=== PATIENT | female | born 1990 | race Caucasian/White ===

== ENCOUNTER 2021-09-30 21:27 | Emergency (ER) | payer OTHER, SELFPAY ==
--- NOTE | ~2021-09-30 | XR_ITS ---
EXAMINATION: XR chest 1V portable EXAM DATE: 09/30/2021 22:35 INDICATION: SOB TECHNIQUE: Portable AP frontal chest x-ray was obtained. There is no prior study for comparison. FINDINGS: There is density projecting over the left upper lung zone and the left 5th rib, could be [place] or intraparenchymal granuloma. The lungs are otherwise clear. There are no pleural effusio ns. The cardiomediastinal silhouette is within normal limits. There is no pneumothorax suspected. The bones and soft tissues are unremarkable. IMPRESSION: No acute cardiopulmonary findings. Left upper lung zone density; benign bone island or g ranuloma favored. CT without contrast could be confirmatory. Reviewed, dictated and finalized at location A. HOSTESS IMPRESSION: No acute cardiopulmonary findings. Left upper lung zone density; b enign bone island or granuloma favored. CT without contrast could be confirmato ry.
[2021-09-30 21:40] VITALS: BP 144/95; PULSE 115; RESP 20; TEMP 37.1; O2SAT 100
--- NOTE | 2021-09-30 21:45 | ECG_ITS ---
Measurements Intervals [place] Rate: 116 P: 52 ME: 137 QRS: 30 QRSD: 72 T: 21 QT: 292 QTc: 407 Interpretive Statements SINUS TACHYCARDIA MINIMAL Q WAVES- INFERIOR LEADS BASELINE ARTIFACT- I, II, III, AVR, AVL, AVF, V1 ABNORMAL ECG Electronically Signed On 10-01-2021 6:25:36 CONTACT CENTER DIRECTOR by Frank Lebron D.O.
[2021-09-30 22:35] VITALS: PULSE 113; RESP 19; O2SAT 100
[2021-09-30 22:43] LABS: Basophils Absolute Auto 0.06 K/mm3 (0.00-0.10); Basophils Percent Auto 0.3 % (0.0-1.0); Eosinophils Absolute Auto 0.31 K/mm3 (0.02-0.50); Eosinophils Percent Auto 1.7 % (1.0-6.0); Hematocrit 41.4 % (35.0-49.0); Immature Granulocyte Absolute 0.07 K/mm3 (0.00-0.00); Immature Granulocyte Percent A 0.4 % (0.0-0.0); Lymphocytes Absolute Auto 2.23 K/mm3 (1.10-4.50); Lymphocytes Percent Auto 12.5 % (18.0-42.0); Mean Corpuscular HGB Conc 33.8 g/dL (32.0-36.0); Mean Corpuscular Volume 91.8 fL (78.0-102.0); Mean Platelet Volume 10.2 fl (9.2-11.8); Monocytes Absolute Auto 1.33 K/mm3 (0.10-0.90); Monocytes Percent Auto 7.4 % (2.0-11.0); Neutrophils Absolute Auto 13.9 K/mm3 (1.7-7.2); Neutrophils Percent Auto 77.7 % (50.0-70.0); Platelet Count Result 440 K/mm3 (150-420); Red Blood Count 4.51 M/mm3 (4.20-5.40); Red Cell Distribution Width 12.3 % (11.6-14.4); White Blood Count 17.9 K/mm3 (4.8-10.8)
[2021-09-30] MEDS: ALBUTEROL SULFATE (*SP) INHALER 4 PUFF INHALATION (22:45)
[2021-09-30 22:47] VITALS: PULSE 113; RESP 19; O2SAT 100
[2021-09-30 22:47] LABS: SARS-CoV-2 Ag Negative (Negative)
[2021-09-30 22:58] LABS: Influenza Control Valid (Valid); SPREG INTERNAL CONTROL Positive; Serum Qual hCG Negative
[2021-09-30 23:04] LABS: Lactic Acid Reflex 1.2 mmol/L (0.4-2.0)
--- NOTE | 2021-09-30 23:09 | ED.SOB ---
HPI - SOB/Dyspnea General Chief Complaint: Shortness of Breath/Dyspnea Stated Complaint: trouble breathing/throat swollen Time Seen by Provider: 09/30/21 21:30 Source: patient and RN notes reviewed Mode of arrival: ambulatory Limitations: no limitations History of Present Illness HPI Narrative: sore throat increasing x 5 days. MD elicited complaint: shortness of breath and cough Onset (ago): day(s) (5) Timing: constant Severity: moderate Exacerbating factors: nothing Relieving factors: medication Known history of: COPD Associated symptoms: cough, wheezing and chest congestion Related Data Home oxygen amount: none Allergies Allergy/AdvReac Type Severity Reaction Status Date / Time No Known Allergies Allergy Unverified 02/09/15 10:11 Review of Systems Review of Systems: All systems reviewed & are unremarkable except as noted in HPI and below ENT: Reports nasal congestion and Reports sore throat Respiratory: Respiratory: Reports chest congestion, Reports cough, Reports dyspnea and Reports wheezing PMFSH Past Medical History Medical History Acute exacerbation of chronic obstructive airways disease Pharyngitis due to Streptococcus species Exam Const: General: no acute distress Nutritional Appearance: obese Orientation/consciousness: patient oriented x3 Limitations: no limitations HENMT: Ears: external ears normal and TM's normal bilaterally General nose exam: Normal external nose present and Normal nares present Mouth: Yes lip normal and Yes moist mucous membranes Other: moderately enlarged and hyperemic tonsils with minimal exudates Eyes: Conjunctivae: conjunctivae normal Pupils: Equal, round and reactive pupils present EOM: EOMs intact bilaterally Neck: Neck: normal visual inspection Chest: Chest palpation & inspection: normal inspection of the chest Resp: Effort & Inspection: normal respiratory effort Auscultation: rhonchi and wheezes Cardio: Rate: tachycardic Rhythm: regular rhythm GI: GI Palp: Yes Soft to palpation and No Tenderness to palpation present (GI) : General: Yes bladder normal to palpation and Yes no CVA tenderness Back/Spine/Pelvis: Back: no CVA tenderness Skin: General skin exam: normal color Rashes: no rashes Neuro: General: patient oriented x3, moves all extremities, no meningeal signs, no focal motor deficits and CN's II-XI intact bilaterally Extrem: General: normal to inspection and no pedal edema Psych: Mental Status: mental status grossly normal Affect: normal affect Attitude: cooperative Thought content: Yes Normal thought content present Course Course Emergency Course: Pt was stable and significantly improved in the ED. She understood the labs and imaging findings, but refused the CT scan, IV fluids and will f/u [facility] with her PMD for workup. Reevaluation(s) Reevaluation #1: Pt had less wheezing and pain in the ED. Date: 09/30/21 Time: 22:28 Vital Signs Vital signs: Vital Signs Temperature 37.1 C 09/30/21 21:40 Pulse Rate 115 H 09/30/21 21:40 Respiratory Rate 20 09/30/21 21:40 Blood Pressure 144/95 H 09/30/21 21:40 Pulse Oximetry 100 09/30/21 21:40 Temperature 37.1 C 09/30/21 21:40 Pulse Rate 113 H 09/30/21 22:47 Respiratory Rate 19 09/30/21 22:47 Blood Pressure 144/95 H 09/30/21 21:40 Pulse Oximetry 100 09/30/21 22:47 MDM - SOB/Dyspnea Differential Diagnosis Differential diagnosis: Likely acute exacerbation of chronic obstructive airways disease, community acquired pneumonia and other (pharyngitis, viral syndrome.) Medical Records Attestation: I reviewed the patient's medical records. Lab Data Attestation: I reviewed the patient's lab results. Result diagrams: 09/30/21 22:18 09/30/21 22:18 Labs: Lab Results 09/30/21 09/30/21 09/30/21 Range/Units 22:18 22:18 22:18 WBC 17.9 H (4.8-10.8) K/mm3 RBC 4.51 (4.20-5.40) M/mm3
[2021-09-30 23:13] LABS: Alanine Aminotransferase 44 U/L (14-59); Albumin Level 3.5 g/dL (3.4-5.0); Alkaline Phosphatase 130 U/L (46-116); Anion Gap 14 mmol/L (8-16); Aspartate Amino Transferase 18 U/L (15-37); Bilirubin,Total 0.3 mg/dL (0.00-1.00); Blood Urea Nitrogen 8 mg/dL (7-18); Calcium 9.4 mg/dL (8.5-10.1); Carbon Dioxide 23 mmol/L (21-32); Chloride 99 mmol/L (98-108); Estimated CRCL calculation 132 ml/min; Estimated Glomerular Filt Rate > 60; Glucose 114 mg/dL (70-99); NT Pro B Type Natriuretic Pept 32 pg/mL (0-125); Osmolality Calculated 281 mOsm/kg (285-295); Potassium 3.9 mmol/L (3.5-5.1); Sodium 136 mmol/L (136-145); Total Protein 8.2 g/dL (6.4-8.2)
[2021-09-30] MEDS: KETOROLAC (*BKC) 60 MG/2 ML VIAL IM (23:14)
[2021-09-30] MEDS: cefTRIAXone 1 GM VIAL IM (23:16)
[2021-09-30] MEDS: LIDOCAINE HCL 1% LOCAL INJ 20 ML VIAL (23:17)
[2021-09-30 23:18] LABS: Troponin I < 4.0 ng/L (0.00-60.4)
[2021-09-30 23:21] VITALS: BP 140/78; PULSE 95; RESP 18; TEMP 36.6; O2SAT 99
== END 2021-09-30 23:23 | disposition home or self-care (01) ==
PROVIDERS: Emergency Provider Emergency Medicine; PCP Internal Medicine
DX: J02.0 Streptococcal pharyngitis (principal); J44.1 Chronic obstructive pulmonary disease with (acute) exacerbation; R91.1 Solitary pulmonary nodule; Z20.822 Contact with and (suspected) exposure to COVID-19
CPT/HCPCS: 71045; 80053; 83605; 83880; 84484; 84703; 85025; 87426; 87804; 87880; 93005; 94640; 96372; 99283; 99284; A9270; C9803; J0696; J1885

== ENCOUNTER 2022-10-28 00:05 | Emergency (ER) | payer OTHER, SELFPAY ==
--- NOTE | ~2022-10-28 | XR_ITS ---
Portable chest x-ray Comparison: 09/30/2021 Clinical History: Chest pain Findings: Lungs are clear, without focal consolidation or pleural effusion. Cardiomediastinal silho uette is stable. Linear radiodense object overlying the left upper quadrant abdomen noted. Impression: Clear lungs. Linear radiodense object overlying the left upper quadrant. This is presumably external to the patien t. Correlate for any possibility of foreign body. Reviewed, dictated and finalized at location M. ADVISOR Impression: Clear lungs. Linear radiodense object overlying the left upper quadrant. This is presumably external to the patient. Correlate for any possibility of foreign body.
[2022-10-28 00:15] VITALS: BP 125/72; PULSE 108; RESP 18; TEMP 36.7; O2SAT 98
--- NOTE | 2022-10-28 00:23 | ECG_ITS ---
Measurements Intervals [place] Rate: 86 P: 41 CA: 160 QRS: 22 QRSD: 77 T: 20 QT: 336 QTc: 402 Interpretive Statements SINUS RHYTHM NORMAL ECG COMPARED TO ECG 09/30/2021 22:32:16 PATIENT IS NO LONGER TACHYCARDIC Electronically Signed On 10-28-2022 12:57:27 NON DESTRUCTIVE TESTER by Demarcus Barrett M.D.
--- NOTE | 2022-10-28 00:25 | ED.GENADULT ---
HPI - General Adult General Chief complaint: Unspecified Stated complaint: Vomiting History of Present Illness HPI narrative: Heidy is a 32F with a PMH of COPD and obesity that presented to the ED with non-specific abdominal pain. She answers questions with one word or very short answers in a sarcastic manner. From what I can gather, She woke up with a pain in her epigastric region several hours ago and chest pain that radiates to both extremities and her head. I asked her to elaborate and she replied it just fucking hurts! It is associated with several episodes of non-bloody vomiting, and some dyspnea. No syncope reported. Related Data Allergies Allergy/AdvReac Type Severity Reaction Status Date / Time No Known Allergies Allergy Unverified 02/09/15 10:11 Review of Systems Review of Systems: All systems reviewed & are unremarkable except as noted in HPI and below PMFSH Past Medical History Medical History Acute exacerbation of chronic obstructive airways disease Pharyngitis due to Streptococcus species Exam Const: General: healthy appearing and no acute distress Nutritional Appearance: well nourished Orientation/consciousness: patient oriented x3 HENMT: Head: normal to inspection Ears: external ears normal and TM's normal bilaterally Eyes: Conjunctivae: conjunctivae normal Pupils: Equal, round and reactive pupils present EOM: EOMs intact bilaterally Neck: Neck: normal visual inspection Chest: Chest palpation & inspection: normal inspection of the chest Resp: Effort & Inspection: normal respiratory effort Auscultation: clear to auscultation bilaterally Cardio: Rate: regular rate Rhythm: regular rhythm GI: Inspection: non-distended GI Palp: Yes Soft to palpation, Yes Tenderness to palpation present (GI), No Guarding due to palpation present (GI), No Rigid due to palpation, No Palpable mass present and No Rebound tenderness present Auscultation: normal bowel sounds Other: TTP diffusely that is worse in the epigastric and RUQ regions. Back/Spine/Pelvis: Back: no CVA tenderness Skin: General skin exam: normal color Neuro: General: patient oriented x3 and moves all extremities Extrem: General: normal to inspection Psych: Mental Status: mental status grossly normal Course Course Emergency Course: Ordered labs, CXR, and EKG as well as GI cocktail EKG showed NSR with a rate of 86, rhythm, normal axis and no ST elevation/depression Her stomach felt much better after a GI cocktail but she still had a headache so Tylenol was ordered. After the tylenol she was sleeping but still complained of a headache to aspirin and benadryl were ordered. COVID+, other labs unremarkable. Vital Signs Vital signs: Vital Signs Pulse Rate 108 H 10/28/22 00:15 Respiratory Rate 18 10/28/22 00:15 Blood Pressure 125/72 10/28/22 00:15 Pulse Oximetry 98 10/28/22 00:15 Oxygen Delivery Room Air 10/28/22 00:15 Pulse Rate 108 H 10/28/22 00:15 Respiratory Rate 18 10/28/22 00:15 Blood Pressure 125/72 10/28/22 00:15 Pulse Oximetry 98 10/28/22 00:15 Oxygen Delivery Room Air 10/28/22 00:15 Medical Decision Making Vital Signs Vital Signs: Vital Signs Pulse Rate 108 H 10/28/22 00:15 Respiratory Rate 18 10/28/22 00:15 Blood Pressure 125/72 10/28/22 00:15 Pulse Oximetry 98 10/28/22 00:15 Oxygen Delivery Room Air 10/28/22 00:15 Pulse Rate 108 H 10/28/22 00:15 Respiratory Rate 18 10/28/22 00:15 Blood Pressure 125/72 10/28/22 00:15 Pulse Oximetry 98 10/28/22 00:15 Oxygen Delivery Room Air 10/28/22 00:15 Discharge Plan Discharge Clinical Impression: Vomiting, COVID Patient Disposition: Home, Self-Care Condition: Stable Instructions: Acute Nausea and Vomiting (ED) Prescriptions: New ondansetron 4 mg tablet,disintegrating 4 mg PO Q8H PRN (Reason: nausea a
[2022-10-28] MEDS: MAG HYDROX/ALUMINUM HYD/SIMETH 30 ML, PHENobarb/HYOSCY/ATROPINE/SCOP 32.4 MG, LIDOCAINE... PO (00:34)
[2022-10-28] MEDS: ONDANSETRON HCL ODT 4 MG TABLET PO (00:57)
[2022-10-28 01:13] VITALS: PULSE 96; RESP 18; O2SAT 94
[2022-10-28 01:21] LABS: Basophils Absolute Auto 0.03 K/mm3 (0.00-0.10); Basophils Percent Auto 0.4 % (0.0-1.0); Eosinophils Absolute Auto 0.14 K/mm3 (0.02-0.50); Eosinophils Percent Auto 1.7 % (1.0-6.0); Hematocrit 38.7 % (35.0-49.0); Hemoglobin 12.6 g/dL (12.0-15.0); Immature Granulocyte Absolute 0.03 K/mm3 (0.00-0.00); Immature Granulocyte Percent A 0.4 % (0.0-0.0); Lymphocytes Absolute Auto 0.33 K/mm3 (1.10-4.50); Mean Corpuscular HGB Conc 32.6 g/dL (32.0-36.0); Mean Corpuscular Hemoglobin 30.7 pg (27.0-31.0); Mean Corpuscular Volume 94.4 fL (78.0-102.0); Monocytes Absolute Auto 0.73 K/mm3 (0.10-0.90); Monocytes Percent Auto 8.9 % (2.0-11.0); Neutrophils Absolute Auto 6.9 K/mm3 (1.7-7.2); Neutrophils Percent Auto 84.6 % (50.0-70.0); Platelet Count Result 296 K/mm3 (150-420); Red Cell Distribution Width 12.1 % (11.6-14.4); White Blood Count 8.2 K/mm3 (4.8-10.8)
[2022-10-28] MEDS: ACETAMINOPHEN 500 MG TABLET 1000 MG PO (01:26)
[2022-10-28 01:42] LABS: Alanine Aminotransferase 42 U/L (14-59); Albumin Level 3.3 g/dL (3.4-5.0); Alkaline Phosphatase 96 U/L (46-116); Anion Gap 8 mmol/L (8-16); Aspartate Amino Transferase 21 U/L (15-37); Bilirubin,Total 0.3 mg/dL (0.00-1.00); Blood Urea Nitrogen 8 mg/dL (7-18); Calcium 8.6 mg/dL (8.5-10.1); Carbon Dioxide 25 mmol/L (21-32); Chloride 101 mmol/L (98-108); Estimated CRCL calculation 149 ml/min; Estimated Glomerular Filt Rate > 60; Glucose 106 mg/dL (70-99); NT Pro B Type Natriuretic Pept 29 pg/mL (0-125); Osmolality Calculated 276 mOsm/kg (285-295); Potassium 3.7 mmol/L (3.5-5.1); Sodium 134 mmol/L (136-145); Total Protein 7.3 g/dL (6.4-8.2)
[2022-10-28 01:43] LABS: Ethanol < 3 mg/dL (0-6)
[2022-10-28 01:44] LABS: Lipase 12 U/L (16-77); Magnesium 1.5 mg/dL (1.8-2.4); Troponin I < 4.0 ng/L (0.00-60.4)
[2022-10-28] MEDS: ASPIRIN 81 MG CHEWABLE TABLET 324 MG PO (01:52)
[2022-10-28] MEDS: diphenhydrAMINE HCl CAP 25 MG CAPSULE 50 MG PO (01:52)
[2022-10-28 02:26] LABS: Influenza A QL RT-PCR Negative (Negative); Influenza B QL RT-PCR Negative (Negative); SARS-CoV-2 RNA PCR Positive (Negative)
[2022-10-28 02:27] LABS: RSV RNA, RT-PCR Negative (Negative)
== END 2022-10-28 02:40 | disposition home or self-care (01) ==
PROVIDERS: Emergency Provider Family Medicine
DX: U07.1 COVID-19 (principal); R11.10 Vomiting, unspecified; J44.9 Chronic obstructive pulmonary disease, unspecified; E66.9 Obesity, unspecified; Z68.41 Body mass index [BMI] 40.0-44.9, adult
CPT/HCPCS: 36415; 71045; 80053; 80307; 83690; 83735; 83880; 84484; 85025; 85610; 87637; 93005; 99284; A9270

== ENCOUNTER 2023-12-07 10:53 | Emergency (ER) | payer OTHER, SELFPAY ==
--- NOTE | 2023-12-07 10:54 | ED.DENTAL ---
HPI - Dental/Oral General Chief complaint: Dental/Oral Stated complaint: tooth pain Time Seen by Provider: 12/07/23 10:54 Source: patient Mode of arrival: ambulatory Limitations: no limitations History of Present Illness HPI Narrative: patient is a 33-year-old female with posterior lower jaw dental pain for the past few days. She has a plan to see a dentist at the end of December. Complaint: tooth pain Location: Tooth # (17 and 32) Onset (ago): day(s) (3) Duration: constant Severity: moderate Severity scale (1-10): 7 Relieving factors: nothing Exacerbating factors: chewing, cold, heat and drinking fluids Context: history of dental caries Treatment prior to arrival: topical analgesic Related Data Allergies Allergy/AdvReac Type Severity Reaction Status Date / Time No Known Allergies Allergy Unverified 09/18/23 09:31 Review of Systems Review of Systems: All systems reviewed & are unremarkable except as noted in HPI and below Constitutional: Constitutional: Reports no additional constitutional complaints Eyes: Eyes: Reports no additional eye complaints ENT: Reports system reviewed and no additional complaints, except as documented Cardiovascular: Cardiovascular: Reports no additional cardiovascular complaints Respiratory: Respiratory: Reports no additional respiratory complaints Gastrointestinal: Gastrointestinal: Reports no additional gastrointestinal complaints Genitourinary: Genitourinary: Reports no additional female genitourinary complaints Musculoskeletal: Musculoskeletal: Reports no additional musculoskeletal complaints Integumentary/Breasts: Skin/Breast: Reports system reviewed and no additional complaints, except as docu Neurologic: Reports system reviewed and no additional complaints, except as documented Psychiatric: Psychiatric: Reports no additional psychiatric complaints Endocrine: Endocrine: Reports no additional endocrine complaints Hematologic/Lymphatic: Hematologic/Lymphatic: Reports no additional hematologic/lymphatic complaints Allergic/Immunologic: Allergic/Immunologic: Reports no additional allergic/immunologic complaints PMFSH Past Medical History Medical History Acute exacerbation of chronic obstructive airways disease Pharyngitis due to Streptococcus species Exam Const: General: healthy appearing Nutritional Appearance: well nourished Orientation/consciousness: patient oriented x3 HENMT: Head: normal to inspection Ears: external ears normal Face/Nose/Sinus: Normal external nose present Other: Tooth 17. And 32 both have black decay and 32 is worse than 17; there is tenderness to the teeth; no abscesses Eyes: Conjunctivae: conjunctivae normal Pupils: Equal, round and reactive pupils present EOM: EOMs intact bilaterally Neck: Neck: normal visual inspection Chest: Chest palpation & inspection: normal inspection of the chest Resp: Effort & Inspection: normal respiratory effort and not labored Auscultation: clear to auscultation bilaterally Cardio: Rate: regular rate Rhythm: regular rhythm Heart sounds: no murmurs GI: Inspection: non-distended GI Palp: Yes Soft to palpation and No Tenderness to palpation present (GI) Auscultation: normal bowel sounds : General: Yes bladder normal to palpation Back/Spine/Pelvis: Back: no CVA tenderness Skin: General skin exam: normal color Rashes: no rashes Wounds: no wounds Neuro: General: patient oriented x3 Cranial nerves: Yes Nystagmus not present Speech: normal speech Extrem: General: normal to inspection Psych: Mental Status: mental status grossly normal Affect: normal affect Attitude: cooperative Course Vital Signs Vital signs: Vital Signs Temperature 36.7 C 12/07/23 10:59 Pulse Rate 71 12/07/23 10:59 Respiratory Rate 20 12/07/23 10:59 Blood Pressure 131/82 12/07/23 10:59 Pulse Oximetry 98 12/07/23 10:59 Oxygen Delivery R
[2023-12-07 10:59] VITALS: BP 131/82; PULSE 71; RESP 20; TEMP 36.7; O2SAT 98
[2023-12-07] MEDS: KETOROLAC (*BKC) 60 MG/2 ML VIAL IM (11:13)
[2023-12-07 11:31] VITALS: BP 128/80; PULSE 68; RESP 20; TEMP 36.9; O2SAT 98
== END 2023-12-07 11:32 | disposition home or self-care (01) ==
LOC: CHSED 11:23
PROVIDERS: Emergency Provider Emergency Medicine
DX: R68.84 Jaw pain (principal)
CPT/HCPCS: 96372; 99283; J1885

== ENCOUNTER 2023-12-07 16:46 | Emergency (ER) | payer OTHER, SELFPAY ==
[2023-12-07 16:52] VITALS: BP 143/94; PULSE 91; RESP 18; TEMP 36.6; O2SAT 99
--- NOTE | 2023-12-07 17:54 | ED.DENTAL ---
HPI - Dental/Oral General Chief complaint: Dental/Oral Stated complaint: tooth pain Time Seen by Provider: 12/07/23 17:45 Source: patient Mode of arrival: ambulatory Limitations: no limitations History of Present Illness HPI Narrative: Patient presents to the emergency department for dentalgia. Ongoing since yesterday. She was seen at another ER and given Augmentin and tramadol. She presents for continued pain. She has only taken 1 dose of Augmentin. She had an appointment scheduled with a dentist but missed it. They were able to reschedule her, but not for another couple of months. Denies fevers or drainage. MD Complaint: tooth pain Location: Tooth # (18) Related Data Allergies Allergy/AdvReac Type Severity Reaction Status Date / Time No Known Allergies Allergy Unverified 12/07/23 17:44 Review of Systems Review of Systems: CONSTITUTIONAL: Denies fever ENT: Reports dentalgia All systems reviewed & are unremarkable except as noted in HPI and below PMFSH Past Medical History Medical History (Updated 12/07/23 @ 17:59 by Monserrat Hamilton PA-C) History of bipolar disorder History of COPD Social History Social History (Updated 12/07/23 @ 17:58 by Monserrat Hamilton PA-C) Smoking status: Current every day smoker Exam Narrative: GENERAL: Well-appearing, well-nourished, and in no acute distress. HEAD: Normocephalic, atraumatic. EYES: EOMI. ENT: Mucous membranes moist. Oropharynx without tonsillar hypertrophy exudate or other lesions. Floor of mouth is soft. No trismus. Tooth 18 is tender to palpation. No surrounding fluctuance to suggest abscess NECK: Supple. No adenopathy or masses. CHEST: No respiratory distress. HEART: Regular rat EXTREMITIES: Normal range of motion. No edema. SKIN: Warm, dry, no rash. NEURO: No focal deficits. Alert and oriented x3. PSYCH: Normal mood and affect Course Course Emergency Course: Patient agrees with plan of care Vital Signs Vital signs: Vital Signs Temperature 97.9 F 12/07/23 16:52 Pulse Rate 91 12/07/23 16:52 Respiratory Rate 18 12/07/23 16:52 Blood Pressure 143/94 H 12/07/23 16:52 Pulse Oximetry 99 12/07/23 16:52 Oxygen Delivery Room Air 12/07/23 16:52 Temperature 97.9 F 12/07/23 16:52 Pulse Rate 91 12/07/23 16:52 Respiratory Rate 18 12/07/23 16:52 Blood Pressure 143/94 H 12/07/23 16:52 Pulse Oximetry 99 12/07/23 16:52 Oxygen Delivery Room Air 12/07/23 16:52 MDM - Dental/Oral MDM Narrative Medical decision making narrative: Patient presents to the emergency department for toothache ongoing since yesterday. She is afebrile and nontoxic appearing. No evidence for abscess on exam. Was seen earlier today and started on Augmentin. Instructed to continue this antibiotic as prescribed and take pain medication as needed. She is to follow up with a dentist. She was given warnings to return to the ER Differential Diagnosis Differential diagnosis: Likely dental caries, toothache and dental abscess Critical Care Time Critical Care Time Critical Care Time: No Discharge Plan Discharge Clinical Impression: Toothache Patient Disposition: Home, Self-Care Condition: Stable Instructions: Antibiotic Form, Toothache (ED) Additional Instructions: Return to the Emergency Department if you experience fever >101, increasing swelling and redness of your tooth, or any other symptoms that are concerning to you Take antibiotic as prescribed. Tylenol or Ibuprofen as needed for pain. Prescribed pain medication as needed. You can apply a dab of clove oil to a Qtip and apply to the tooth to help numb the area Follow up with a dentist. [facility] if needed Prescriptions: No Action amoxicillin-pot clavulanate [Augmentin] 500-125 mg tablet 1 tablet PO BID 10 Days Qty: 20 0RF tramadol 50 mg tablet 50 mg PO Q8H PRN (Reason: pain) Qty: 20 0RF Rx Instructions: 1-2 tabs Follow-up/Re
[2023-12-07] MEDS: ACETAMINOPHEN 500 MG TABLET 1000 MG PO (18:17)
[2023-12-07] MEDS: oxyCODONE HCL (*CRX) 5 MG TAB IR PO (18:17)
[2023-12-07 18:22] VITALS: BP 131/76; PULSE 73; RESP 16; TEMP 36.8; O2SAT 100
== END 2023-12-07 18:23 | disposition home or self-care (01) ==
LOC: ANHED 18:04
PROVIDERS: Emergency Provider Physician Assistant
DX: K08.89 Other specified disorders of teeth and supporting structures (principal)
CPT/HCPCS: 99283; A9270

== ENCOUNTER 2024-04-03 20:41 | Emergency (ER) | payer OTHER, SELFPAY ==
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
[2024-04-03 20:43] VITALS: BP 140/95; PULSE 122; RESP 20; TEMP 36.8; O2SAT 96
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
--- NOTE | 2024-04-03 21:00 | PC.NURSE ---
patient is refusing to taken jeans off. refusing to give urine sample. patient was taken via wheel chair to imaging.
--- NOTE | 2024-04-03 21:17 | PC.NURSE ---
patient returned from imaging
--- NOTE | 2024-04-03 22:10 | PC.NURSE ---
patient is standing at the doorway wanting to leave. discharge papers have been prepared
== END 2024-04-03 22:10 | disposition home or self-care (01) ==
PROVIDERS: Emergency Provider Emergency Medicine; PCP Internal Medicine
DX: M25.511 Pain in right shoulder (principal); M54.2 Cervicalgia; M54.6 Pain in thoracic spine; V86.69XA Passenger of other special all-terrain or other off-road motor vehicle injured in nontraffic accident, initial encounter; F17.200 Nicotine dependence, unspecified, uncomplicated
CPT/HCPCS: 70450; 72125; 73030; 99284

== ENCOUNTER 2024-05-03 20:03 | Emergency (ER) | payer OTHER, SELFPAY ==
--- NOTE | ~2024-05-03 | XR_ITS ---
EXAMINATION: XR chest 1V portable DATE: 05/03/2024 20:32 INDICATION: Cough. TECHNIQUE: A single frontal view of the chest was obtained. COMPARISON: Chest single view 10/28/2022 FINDINGS: A calcified left lung nodule is consistent with old granulomatous disease. No pleural effus ion or pneumothorax. The heart size is normal. IMPRESSION: 1. No acute cardiopulmonary disease. Reviewed, dictated and finalized at location A.
[2024-05-03 20:03] VITALS: BP 120/85; PULSE 105; RESP 20; TEMP 36.1; O2SAT 98
[2024-05-03 20:05] VITALS: O2SAT 98
--- NOTE | 2024-05-03 20:08 | PC.NURSE ---
COVID PCR obtained and taken to lab
--- NOTE | 2024-05-03 20:18 | ED.GENADULT ---
HPI - General Adult General Chief complaint: Upper Respiratory Infection Stated complaint: upper respiratory Time Seen by Provider: 05/03/24 20:17 Source: patient History of Present Illness HPI narrative: patient presents with body ache sore throat, headache, dry cough started Today patient claiming that her sister tested positive for COVID few days ago, was with her sister 5 days ago. Related Data Home Medications Medication Instructions Recorded Confirmed No Home Medications 05/03/24 05/03/24 Allergies Allergy/AdvReac Type Severity Reaction Status Date / Time No Known Allergies Allergy Unverified 12/07/23 17:44 Review of Systems Review of Systems: All systems reviewed & are unremarkable except as noted in HPI and below PMFSH Past Medical History Medical History History of bipolar disorder History of COPD Social History Social History Smoking status: Current every day smoker Exam Narrative: General appearance: Well-developed, well-nourished Skin: Normal color Head: Normocephalic, nontraumatic Eyes: Clear conjunctiva ENT: Oropharynx normal, ears normal, nose normal Neck: Supple, nontender Chest and respiratory: Airway patent, no respiratory distress, no accessory muscle use Heart: Regular rate/rhythm Abdomen: Soft, nontender, no organomegaly, quiet bowel sounds Vascular: Normal peripheral pulses, normal capillary refill. 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 HAND is normal as tested, no gross motor deficit Course Vital Signs Vital signs: Vital Signs Temperature 36.1 C L 05/03/24 20:03 Pulse Rate 105 H 05/03/24 20:03 Respiratory Rate 05/03/24 20:03 Blood Pressure 120/85 05/03/24 20:03 Pulse Oximetry 98 05/03/24 20:03 Oxygen Delivery Room Air 05/03/24 20:03 Temperature 36.1 C L 05/03/24 20:03 Pulse Rate 105 H 05/03/24 20:03 Respiratory Rate 05/03/24 20:03 Blood Pressure 120/85 05/03/24 20:03 Pulse Oximetry 98 05/03/24 20:03 Oxygen Delivery Room Air 05/03/24 20:03 Medical Decision Making [facility] Narrative Medical decision making narrative: Differential diagnosis include viral infection. Our test today for COVID, flu and RSV came back negative Urinalysis showed no evidence of infection Chest x-ray showed no pneumonia. Diagnosis viral syndrome. Vital Signs Vital Signs: Vital Signs Temperature 36.1 C L 05/03/24 20:03 Pulse Rate 105 H 05/03/24 20:03 Respiratory Rate 20 05/03/24 20:03 Blood Pressure 120/85 05/03/24 20:03 Pulse Oximetry 98 05/03/24 20:03 Oxygen Delivery Room Air 05/03/24 20:03 Temperature 36.1 C L 05/03/24 20:03 Pulse Rate 105 H 05/03/24 20:03 Respiratory Rate 20 05/03/24 20:03 Blood Pressure 120/85 05/03/24 20:03 Pulse Oximetry 98 05/03/24 20:03 Oxygen Delivery Room Air 05/03/24 20:03 Lab Data Labs: Lab Results 05/03/24 Range/Units 20:09 Influenza A (RT-PCR) Pending Influenza B (RT-PCR) Pending RSV (RT-PCR) Pending SARS-CoV-2 RNA (RT-PCR) Pending Imaging Data Radiologist's impression: Impressions Chest X-Ray 05/03/24 20:32 IMPRESSION: 1. No acute cardiopulmonary disease. Critical Care Time Critical Care Time Critical Care Time: No Discharge Plan Discharge Clinical Impression: Acute viral syndrome Patient Disposition: Home, Self-Care Condition: Stable Instructions: Viral Syndrome (ED) Additional Instructions: Return if symptoms are worsening , call your fami
--- NOTE | 2024-05-03 20:23 | PC.NURSE ---
pt taken to bathroom to give urine sample
[2024-05-03 20:32] LABS: Add Urine Microscopic? NO; Appearance Urine Clear (Clear); Bilirubin Urine Negative (Negative); Blood Urine Trace-intact (Negative); Color Urine Yellow (Yellow); Glucose Urine UA Negative (Negative); Ketones Urine Negative (Negative); Leukocyte Esterase Ur Negative LEU/UL (Negative); Nitrate Urine Negative (Negative); Protein Urine Negative (Negative); Specific Grav Ur >= 1.030 (1.010-1.020); Urobilinogen Urine 0.2 mg/dL (0.2-1.0)
[2024-05-03 20:46] LABS: Influenza A QL RT-PCR Negative (Negative); Influenza B QL RT-PCR Negative (Negative); RSV RNA, RT-PCR Negative (Negative); SARS-CoV-2 RNA PCR Negative (Negative)
[2024-05-03 20:55] VITALS: BP 122/85; PULSE 84; RESP 18; TEMP 36.6; O2SAT 98
== END 2024-05-03 20:55 | disposition home or self-care (01) ==
PROVIDERS: Emergency Provider Emergency Medicine; PCP Internal Medicine
DX: B34.9 Viral infection, unspecified (principal); F17.200 Nicotine dependence, unspecified, uncomplicated; Z20.822 Contact with and (suspected) exposure to COVID-19
CPT/HCPCS: 71045; 81003; 87637; 99283

== ENCOUNTER 2024-07-08 04:53 | Emergency (ER) | payer OTHER, SELFPAY ==
[2024-07-08 04:57] VITALS: BP 122/89; PULSE 109; RESP 18; TEMP 36.1; O2SAT 99
[2024-07-08 05:05] VITALS: PULSE 94; RESP 16; O2SAT 97
[2024-07-08 05:16] VITALS: BP 123/88; PULSE 102; RESP 18; O2SAT 99
--- NOTE | 2024-07-08 05:21 | ED_ITS ---
HPI - Abdominal Pain General Chief Complaint: Abdominal Pain Stated Complaint: abdominal pain Time Seen by Provider: 07/08/24 05:02 Source: patient and family Mode of arrival: ambulatory Limitations: no limitations History of Present Illness HPI narrative: 33-year-old female with a history of smoking, bipolar disorder, COPD presents to the ED with a 6 hour history of -- epigastric pain. No radiation of the pain. Patient has nausea without any vomiting. No fever. No diarrhea. no exacerbating or relieving factors. MD elicited complaint: abdominal pain Pertinent past history: none Onset (ago): hour(s) ( 6 hours) Pain Consistency: constant Location: epigastric Severity: severe Quality: aching Radiation: none Migration to: no migration Exacerbating factors: nothing Relieving factors: nothing Associated symptoms: nausea Related Data Hx Last Menstrual Period: patient does not have her menstrual periods on a regular basis secondary t Home Medications Medication Instructions Recorded Confirmed aripiprazole 10 mg tablet 10 mg PO DAILY 07/08/24 07/08/24 Allergies Allergy/AdvReac Type Severity Reaction Status Date / Time No Known Allergies Allergy Verified 07/08/24 05:08 Review of Systems Review of Systems: All systems reviewed & are unremarkable except as noted in HPI and below Constitutional: Constitutional: Reports as per HPI and Reports no additional constitutional complaints Eyes: Eyes: Reports as per HPI and Reports no additional eye complaints ENT: Reports system reviewed and no additional complaints, except as documented and Reports as per HPI Cardiovascular: Cardiovascular: Reports as per HPI and Reports no additional cardiovascular complaints Respiratory: Respiratory: Reports as per HPI and Reports no additional respiratory complaints Gastrointestinal: Gastrointestinal: Reports as per HPI and Reports abdominal pain Comments: Epigastric pain Genitourinary: Genitourinary: Reports no additional female genitourinary complaints Musculoskeletal: Musculoskeletal: Reports no additional musculoskeletal complaints Integumentary/Breasts: Skin/Breast: Reports system reviewed and no additional complaints, except as docu Neurologic: Reports system reviewed and no additional complaints, except as documented Psychiatric: Psychiatric: Reports no additional psychiatric complaints Endocrine: Endocrine: Reports no additional endocrine complaints Hematologic/Lymphatic: Hematologic/Lymphatic: Reports no additional hematologic/lymphatic complaints Allergic/Immunologic: Allergic/Immunologic: Reports no additional allergic/immunologic complaints PMFSH Past Medical History Medical History History of bipolar disorder History of COPD Social History Social History Smoking status: Current every day smoker Exam Narrative: afebrile. Oxygen saturation of 99% on room air. Heart rate of 109. Blood pressure stable. Const: General: ill appearing Nutritional Appearance: well nourished Orientation/consciousness: patient oriented x3 Limitations: no limitations HENMT: Head: normal to inspection Ears: external ears normal Face/Nose/Sinus: Normal external nose present Face and sinus: normal facial exam Mouth: Yes Normal oral and palatal mucosa present Throat: posterior oropharynx normal Eyes: Conjunctivae: conjunctivae normal Pupils: Equal, round and reactive pupils present EOM: EOMs intact bilaterally Direct Ophthalmoscopy: no photophobia Neck: Neck: normal visual inspection and no lymphadenopathy Chest: Chest palpation & inspection: normal inspection of the chest Resp: Effort & Inspection: normal respiratory effort Auscultation: clear to auscultation bilaterally Cardio: Rate: regular rate Rhythm: regular rhythm GI: GI Palp: Yes Soft to palpation and Yes Tenderness to palpation present (GI) Other: Epigastric tenderness without any rigidity : General: Yes no CVA tenderness Skin: General skin exam: normal color Rashes: no rashes Wounds: no wounds Neuro: General: patient oriented x3, moves all extremities, no meningeal signs, no focal motor deficits and CN's II-XI intact bilaterally Cranial nerves: Yes Nystagmus not present Speech: normal speech Gait exam (Neuro): Normal gait present Extrem: General: normal to inspection and no clubbing, cyanosis or edema Psych: Mental Status: mental status grossly normal Affect: normal affect Attitude: cooperative Course Course Emergency Course: Epigastric pain secondary to gastritis-- pain improved with GI cocktail and Protonix. Vital Signs Vital signs: Vital Signs Oxygen Delivery Room Air 07/08/24 04:53 Temperature 36.1 C L 07/08/24 04:57 Pulse Rate 99 07/08/24 05:31 Respiratory Rate 19 07/08/24 05:31 Blood Pressure 116/86 07/08/24 05:31 Pulse Oximetry 99 07/08/24 05:31 Oxygen Delivery Room Air 07/08/24 04:57 MDM - Abdominal Pain MDM Narrative Medical decision making narrative: Epigastric pain/gastritis Differential Diagnosis Differential diagnosis: Likely pancreatitis Medical Records Attestation: I reviewed the patient's medical records. Lab Data Attestation: I reviewed the patient's lab results. 07/08/24 05:33 07/08/24 05:33 Labs: Lab Results 07/08/24 Range/Units 05:33 WBC 12.2 H (4.8-10.8) K/mm3 RBC 4.29 (4.20-5.40) M/mm3 Hgb 13.2 (12.0-15.0) g/dL Hct 39.9 (35.0-49.0) % MCV 93.0 (78.0-102.0) fL MCH 30.8 (27.0-31.0) pg MCHC 33.1 (32-36) g/dL RDW 13.0 (11.6-14.4) % Plt Count 422 H (150-420) K/mm3 MPV 9.5 (9.2-11.8) fl Immature Gran % (Auto) 0.3 H (0.0-0.0) % Neut % (Auto) 63.5 (50.0-70.0) % Lymph % (Auto) 25.5 (18.0-42.0) % [place] % (Auto) 7.2 (2.0-11.0) % Eos % (Auto) 2.9 (1.0-6.0) % Baso % (Auto) 0.6 (0.0-1.0) % Lymph # (Auto) 3.10 (1.10-4.50) K/mm3 [place] # (Auto) 0.87 (0.10-0.90) K/mm3 Eos # (Auto) 0.35 (0.02-0.50) K/mm3 Baso # (Auto) 0.07 (0.00-0.10) K/mm3 Abs Immat Gran (auto) 0.04 H (0.00-0.00) K/mm3 Absolute Neuts (auto) 7.73 H (1.70-7.20) K/mm3 Absolute Nucleated RBC 0.00 (0.00-0.00) K/mm3 Nucleated RBC % 0.0 (0-0.0) % PT 10.2 (9.50-12.1) Seconds INR 0.9 Sodium 140 (136-145) mmol/L Potassium 4.1 (3.5-5.1) mmol/L Chloride 105 (98-108) mmol/L Carbon Dioxide 26 (21-32) mmol/L Anion Gap 9 (4-12) mmol/L BUN 14 (7-18) mg/dL Creatinine 1.13 H (0.55-1.02) mg/dL Estim Creat Clear Calc 96 ml/min Estimated GFR 55 L (59 - ) Glucose 105 H (70-99) mg/dL Calculated Osmolality 290 (285-295) mOsm/kg Lactic Acid 0.8 (0.4-2.0) mmol/L Calcium 9.0 (8.5-10.1) mg/dL Total Bilirubin 0.3 (0.00-1.00) mg/dL Direct Bilirubin 0.1 (0-0.2) mg/dL AST 30 (15-37) U/L ALT 39 (14-59) U/L Alkaline Phosphatase 95 (46-116) U/L Total Protein 7.7 (6.4-8.2) g/dL Albumin 3.4 (3.4-5.0) g/dL Lipase 16 (16-77) U/L Discharge Plan Discharge Clinical Impression: Acute epigastric pain Gastritis Qualifiers: Gastritis type: unspecified gastritis Chronicity: acute Gastritis bleeding: without bleeding Qualified Code(s): K29.00 - Acute gastritis without bleeding Patient Disposition: Home, Self-Care Condition: Stable Instructions: Antibiotic Form, Gastritis (ED) Additional Instructions: patient is in a hurry to leave the ED. advised her to return to the ED for ongoing abdominal pain. Patient Language: Macedonian Prescriptions: New famotidine [Pepcid] 20 mg tablet 20 mg PO BID Qty: 60 0RF No Action aripiprazole 10 mg tablet 10 mg PO DAILY Follow-up/Referrals: Kosta Maldonado MD [Primary Care Provider] - Time of Disposition: 06:01
--- NOTE | 2024-07-08 05:25 | PC.NURSE ---
pt aware urine sample is needed. unable to urinate at this time
[2024-07-08 05:31] VITALS: BP 116/86; PULSE 99; RESP 19; O2SAT 99
[2024-07-08 05:36] LABS: Basophils Absolute Auto 0.07 K/mm3 (0.00-0.10); Basophils Percent Auto 0.6 % (0.0-1.0); Eosinophils Absolute Auto 0.35 K/mm3 (0.02-0.50); Eosinophils Percent Auto 2.9 % (1.0-6.0); Hematocrit 39.9 % (35.0-49.0); Hemoglobin 13.2 g/dL (12.0-15.0); Immature Granulocyte Absolute 0.04 K/mm3 (0.00-0.00); Immature Granulocyte Percent A 0.3 % (0.0-0.0); Lymphocytes Percent Auto 25.5 % (18.0-42.0); Mean Corpuscular HGB Conc 33.1 g/dL (32-36); Mean Corpuscular Hemoglobin 30.8 pg (27.0-31.0); Mean Platelet Volume 9.5 fl (9.2-11.8); Monocytes Absolute Auto 0.87 K/mm3 (0.10-0.90); Monocytes Percent Auto 7.2 % (2.0-11.0); Neutrophils Absolute Auto 7.73 K/mm3 (1.70-7.20); Neutrophils Percent Auto 63.5 % (50.0-70.0); Platelet Count Result 422 K/mm3 (150-420); Red Blood Count 4.29 M/mm3 (4.20-5.40); White Blood Count 12.2 K/mm3 (4.8-10.8)
--- NOTE | 2024-07-08 05:39 | PC.NURSE ---
Went to put IV in pt and she states that she does not have time to get an IV. She has to take the family member to school. She reports that her epigastric pain has significantly improved. She thinks that the pain is just an air bubble and her pain level is now gone down to a 5.
--- NOTE | 2024-07-08 05:42 | PC.NURSE ---
Spoke with ERP regarding pt's refusal of IV. Awaiting no orders.
[2024-07-08 05:50] LABS: INR 0.9; Prothrombin Time 10.2 Seconds (9.50-12.1)
[2024-07-08 05:52] LABS: Alanine Aminotransferase 39 U/L (14-59); Albumin Level 3.4 g/dL (3.4-5.0); Alkaline Phosphatase 95 U/L (46-116); Anion Gap 9 mmol/L (4-12); Aspartate Amino Transferase 30 U/L (15-37); Bilirubin Direct 0.1 mg/dL (0-0.2); Bilirubin,Total 0.3 mg/dL (0.00-1.00); Blood Urea Nitrogen 14 mg/dL (7-18); Carbon Dioxide 26 mmol/L (21-32); Chloride 105 mmol/L (98-108); Estimated CRCL calculation 96 ml/min; Estimated Glomerular Filt Rate 55; Glucose 105 mg/dL (70-99); Lipase 16 U/L (16-77); Osmolality Calculated 290 mOsm/kg (285-295); Potassium 4.1 mmol/L (3.5-5.1); Sodium 140 mmol/L (136-145); Total Protein 7.7 g/dL (6.4-8.2)
[2024-07-08 05:55] LABS: Lactic Acid Reflex 0.8 mmol/L (0.4-2.0)
[2024-07-08] MEDS: PANTOPRAZOLE 40 MG TABLET PO (06:00)
[2024-07-08] MEDS: MAG HYDROX/ALUMINUM HYD/SIMETH 30 ML, PHENobarb/HYOSCY/ATROPINE/SCOP 32.4 MG, LIDOCAINE... PO (06:00)
--- NOTE | 2024-07-08 06:00 | PC.NURSE ---
Pt reports that she needs to take her daughter to school, so she needs to leave. Pt given oral meds. instead of iv meds. Pt refused to give urine. explained that she should return to ER if her pain returns or gets worse. Pt reports that she feels much better already.
== END 2024-07-08 06:05 | disposition home or self-care (01) ==
PROVIDERS: Emergency Provider Internal Medicine Critical Care Medicine; PCP Internal Medicine
DX: K29.00 Acute gastritis without bleeding (principal); J44.9 Chronic obstructive pulmonary disease, unspecified; F17.210 Nicotine dependence, cigarettes, uncomplicated; Z79.899 Other long term (current) drug therapy
CPT/HCPCS: 36415; 80048; 80076; 83605; 83690; 85025; 85610; 99283; A9270

== ENCOUNTER 2024-11-19 14:58 | Emergency (ER) | payer OTHER, SELFPAY ==
--- NOTE | ~2024-11-19 | XR_ITS ---
XR chest 2V Ordering provider: Salty Aaron MD History: 34 years Female with . Dyspnea on exertion,BLE EDEMA . Comparison: May 03, 2024 FINDINGS: MEDIASTINUM: The cardiac silhouette is not enlarged. LUNGS: No infiltrates, effusions or pneumothorax. Calcified granuloma in the left upper lobe unchange d. OTHER: No free air under the diaphragm. IMPRESSION: No acute cardiopulmonary pathology. Reviewed, dictated and finalized at location A.
[2024-11-19 15:00] VITALS: BP 112/58; PULSE 103; RESP 20; TEMP 36.3; O2SAT 98
--- OUTSIDE RECORDS SUMMARY | 2024-11-19 15:00 | XMS_ITS | Clinical Summary ---
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 Gender Identity Not on file Sexual Orientation Not on file Plan of Treatment Health Maintenance Due Date Last Done Comments Cervical Cancer Screening Pa p Smear (Age 30 to 64) Every 3 Years 1990 Annual Physical 1993 Hepatitis C 2008 DTaP, Tdap and Td Vaccines ( 1 - Tdap) 2009 Hepatitis B Vaccines (1 of 3 - 19+ 3-dose series) 2009 Cervical Cancer Screening Pa p with HPV Testing (Age 30 to 64) Every 5 Years 2020 Cervical Cancer Screening with HPV 2020 COVID-19 Vaccine (2023-2 5 season) 2024 Influenza Adult (#1) 2024 HPV Vaccines Aged Out No longer eligi ble based on patient's age to complete this topic Meningococcal B Vaccine Aged Out No l onger eligible based on patient's age to complete this topic Meningococcal Vaccine Aged Out No rod joseph eligible based on patient's age to complete this topic Pneumococcal Vaccine: Pediat rics (0 to 5 Years) and At-Risk Patients (6 to 64 Years) Aged Out No longer eligible b ased on patient's age to complete this topic RSV Immunizations Under 20 Months Aged Out No longer eligible based on patient's age to complete this topic
--- NOTE | 2024-11-19 15:05 | ECG_ITS ---
Test Date: 2024-11-19 15:16:02 Measurements Intervals [place] Rate: 94 P: 27 IL: 148 QRS: 73 QRSD: 73 T: 55 QT: 343 QTc: 430 Interpretive Statements SINUS RHYTHM No previous ECG available for comparison Electronically Signed On 11-19-2024 16:30:37 CDT by Rocio David M.D.
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
[2024-11-19 15:25] LABS: Basophils Absolute Auto 0.05 K/mm3 (0.00-0.10); Basophils Percent Auto 0.6 % (0.0-1.0); Eosinophils Absolute Auto 0.25 K/mm3 (0.02-0.50); Eosinophils Percent Auto 3.2 % (1.0-6.0); Hematocrit 35.4 % (35.0-49.0); Hemoglobin 11.2 g/dL (12.0-15.0); Immature Granulocyte Absolute 0.02 K/mm3 (0.00-0.00); Immature Granulocyte Percent A 0.3 % (0.0-0.0); Lymphocytes Absolute Auto 2.18 K/mm3 (1.10-4.50); Lymphocytes Percent Auto 28.3 % (18.0-42.0); Mean Corpuscular HGB Conc 31.6 g/dL (32-36); Mean Corpuscular Hemoglobin 30.2 pg (27.0-31.0); Mean Corpuscular Volume 95.4 fL (78.0-102.0); Mean Platelet Volume 9.7 fl (9.2-11.8); Monocytes Absolute Auto 0.57 K/mm3 (0.10-0.90); Monocytes Percent Auto 7.4 % (2.0-11.0); Neutrophils Absolute Auto 4.63 K/mm3 (1.70-7.20); Neutrophils Percent Auto 60.2 % (50.0-70.0); Platelet Count Result 342 K/mm3 (150-420); Red Blood Count 3.71 M/mm3 (4.20-5.40); Red Cell Distribution Width 12.5 % (11.6-14.4); White Blood Count 7.7 K/mm3 (4.8-10.8)
--- OUTSIDE RECORDS SUMMARY | 2024-11-19 15:37 | XMS_ITS | Clinical Summary ---
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
[2024-11-19 15:55] LABS: Alanine Aminotransferase 33 U/L (14-59); Albumin Level 3.2 g/dL (3.4-5.0); Alkaline Phosphatase 104 U/L (46-116); Anion Gap 9 mmol/L (4-12); Aspartate Amino Transferase 19 U/L (15-37); Bilirubin,Total 0.2 mg/dL (0.00-1.00); Blood Urea Nitrogen 14 mg/dL (7-18); Calcium 8.8 mg/dL (8.5-10.1); Carbon Dioxide 27 mmol/L (21-32); Chloride 108 mmol/L (98-108); Estimated CRCL calculation 117 ml/min; Estimated Glomerular Filt Rate > 60; Glucose 99 mg/dL (70-99); Osmolality Calculated 298 mOsm/kg (285-295); Potassium 4.4 mmol/L (3.5-5.1); Sodium 144 mmol/L (136-145); Thyroid Stimulating Hormone 1.94 uIU/mL (0.36-3.74)
[2024-11-19 15:56] LABS: NT Pro B Type Natriuretic Pept 23 pg/mL (0-125)
--- NOTE | 2024-11-19 16:19 | PC.NURSE ---
pt denies need to urinate, glass of water given to pt per request. dr henson in with patient discussing plan of care.
[2024-11-19 16:33] LABS: Add Urine Microscopic? NO; Appearance Urine Clear (Clear); Bilirubin Urine Negative (Negative); Blood Urine Negative (Negative); Color Urine Light Yellow (Yellow); Glucose Urine UA Negative (Negative); Ketones Urine Negative (Negative); Leukocyte Esterase Ur Negative LEU/UL (Negative); Nitrate Urine Negative (Negative); Protein Urine Negative (Negative)
[2024-11-19 16:37] LABS: Pregnancy On Board Control Positive; Urine Pregnancy Test Negative
[2024-11-19 16:39] VITALS: BP 131/76; PULSE 83; RESP 20; O2SAT 100
== END 2024-11-19 16:53 | disposition home or self-care (01) ==
PROVIDERS: Emergency Provider Preventive Medicine Aerospace Medicine; PCP Internal Medicine
DX: R60.0 Localized edema (principal); J44.9 Chronic obstructive pulmonary disease, unspecified; F17.200 Nicotine dependence, unspecified, uncomplicated
CPT/HCPCS: 36415; 71046; 80053; 81003; 81025; 83880; 84443; 85025; 93005; 99283

== ENCOUNTER 2025-04-11 10:08 | Emergency (ER) | payer OTHER, SELFPAY ==
[2025-04-11 10:11] VITALS: BP 131/82; PULSE 113; RESP 20; TEMP 36.5; O2SAT 96
--- OUTSIDE RECORDS SUMMARY | 2025-04-11 10:29 | XMS_ITS | Clinical Summary ---
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 Gender Identity Not on file Sexual Orientation Not on file Plan of Treatment Health Maintenance Due Date Last Done Comments Cervical Cancer Screening Pa p Smear (Age 30 to 64) Every 3 Years 1990 Annual Physical 1993 Hepatitis C 2008 DTaP, Tdap and Td Vaccines ( 1 - Tdap) 2009 Hepatitis B Vaccines (1 of 3 - 19+ 3-dose series) 2009 HPV Vaccines (1 - 3-dose SCD M series) 2017 Cervical Cancer Screening Pa p with HPV Testing (Age 30 to 64) Every 5 Years 2020 Cervical Cancer Screening with HPV 2020 COVID-19 Vaccine (2023-2 5 season) 2024 Meningococcal B Vaccine Aged Out No l onger eligible based on patient's age to complete this topic Meningococcal Vaccine Aged Out No rod joseph eligible based on patient's age to complete this topic Pneumococcal Vaccine: Pediat rics (0 to 5 Years) and At-Risk Patients (6 to 49 Years) Aged Out No longer eligible b ased on patient's age to complete this topic RSV Immunizations Under 20 Months Aged Out No longer eligible based on patient's age to complete this topic
[2025-04-11 10:44] VITALS: BP 145/83; PULSE 89; RESP 18; TEMP 36.5; O2SAT 97
[2025-04-11 11:14] LABS: Hematocrit 37.4 % (37.0-47.0); Hemoglobin 12.1 g/dL (12.0-15.0); Immature Granulocyte Percent A 0.3 % (0-0.5); Lymphocytes Absolute Auto 1.22 K/mm3 (0.9-3.2); Mean Corpuscular HGB Conc 32.4 g/dl (32-36); Mean Corpuscular Hemoglobin 30.1 pg (26-34); Mean Corpuscular Volume 93.0 fl (80-100); Nucleated Red Blood Cells Absolute Auto 0.000 K/mm3 (0.0-0.012); Nucleated Red Blood Cells Perc 0.0 % (0.0-0.2); Platelet Count Result 333 k/mm3 (150-375); Red Blood Count 4.02 M/mm3 (4.2-5.4); White Blood Count 6.5 K/mm3 (4.5-10.0)
[2025-04-11 11:38] LABS: Alanine Aminotransferase 22 U/L (6-35); Albumin Level 4.0 g/dL (3.5-5.1); Alkaline Phosphatase 74 U/L (38-126); Anion Gap 6 mmol/L (4-12); Aspartate Amino Transferase 23 U/L (14-36); Bilirubin,Total 0.3 mg/dL (0.2-1.3); Blood Urea Nitrogen 11 mg/dL (7-17); Calcium 9.4 mg/dL (8.4-10.2); Carbon Dioxide 26 mmol/L (22-30); Chloride 105 mmol/L (98-107); Estimated CRCL calculation 143 ml/min; Estimated Glomerular Filt Rate > 60; Glucose 117 mg/dL (65-110); Potassium 4.0 mmol/L (3.4-5.0); Sodium 137 mmol/L (137-145); Total Protein 7.2 g/dL (6.3-8.2)
--- NOTE | 2025-04-11 11:43 | ED_ITS ---
HPI - Psych General Chief Complaint: Psychiatric Symptoms Stated Complaint: I'm in psychosis Time Seen by Provider: 04/11/25 10:41 Source: patient and RN notes reviewed Mode of arrival: ambulatory Limitations: no limitations History of Present Illness HPI Narrative: 34-year-old female presents to the ER complaining of psychosis for the last year. Patient says she has a history of schizophrenia and bipolar disorder. Patient said she used to take Abilify but has been out of it over the last year. Patient said she has been medicating with meth. She said she last used it 2 days ago. Patient also reports she smokes marijuana but denies any other drug or alcohol use. Patient reports hearing voices in her head. Patient denies any visual hallucinations. Patient denies any thoughts of suicide or wanting to hurt other people. Related Data Home Medications ?Medication ?Instructions ?Recorded ?Confirmed ?Last Taken ?Type aripiprazole 10 mg tablet 10 mg PO DAILY 07/08/24 07/08/24 Unknown History Allergies Allergy/AdvReac Type Severity Reaction Status Date / Time No Known Allergies Allergy Verified 04/11/25 10:15 Review of Systems 2 Review of Systems: CONSTITUTIONAL: Denies fever, chills, or sweats. EYES: Denies visual changes, redness, or discharge. ENT: Denies rhinorrhea, congestion, sore throat, or otalgia. CARDIOVASCULAR: Denies chest pain, palpitations, or edema. RESPIRATORY: Denies cough or dyspnea. GASTROINTESTINAL: Denies abdominal pain, nausea, vomiting, or diarrhea. GENITOURINARY: Denies dysuria or hematuria. SKIN: Denies rash or itching. MUSCULOSKELETAL: Denies back pain, joint pain, or myalgia. NEUROLOGIC: Denies headache, numbness, or weakness. PSYCHIATRIC: Denies anxiety, suicidal ideations, homicidal ideations, or depression. Positive for hallucinations. All other systems reviewed are negative, except as documented in HPI. [facility] Past Medical History Medical History History of bipolar disorder History of COPD Surgical History Surgical History No significant past surgical history Social History Social History Smoking status: Current every day smoker Alcohol intake: current Drinks per week: 1 Substance use type: marijuana and methamphetamine Comments At the time of my signature, I reviewed and agree with the nursing past medical, surgical, social, and family history. There is no relevant family history pertinent to the patient complaint. Exam 2 Narrative: GENERAL: This is a well-nourished, well-developed adult, in no apparent distress. They are non ill-appearing, nontoxic appearing. Patient is disheveled appearing. HEAD: normocephalic, atraumatic. EYES: Sclera clear/white. Conjunctiva normal. Vision is grossly intact. Extraocular movements intact EARS: External ears normal, NOSE: External nose normal THROAT: Mucous membranes moist, NECK: Neck supple, CARDIOVASCULAR: Regular rate and rhythm without murmurs, gallops, or rubs. RESPIRATORY: Clear to auscultation. Breath sounds equal bilaterally. No wheezes, rales, or rhonchi. SKIN: warm, Dry, intact with no suspicious lesions or rash, good texture and turgor. NEURO: awake, alert, and oriented to person, place and time. There were no obvious focal neurologic abnormalities. EXTREMITIES: No joint tenderness, effusion, or edema noted. PSYCH: Affect is flat. Attitude is calm and cooperative. No suicidal or homicidal ideations. Course Course Emergency Course: [address] Patient sign out to Dr. Cuenca awaiting transport to [facility] for inpatient psychiatric services. Vital Signs Vital signs: Vital Signs Temperature 97.7 F 04/11/25 10:11 Pulse Rate 113 H 04/11/25 10:11 Respiratory Rate 20 04/11/25 10:11 Blood Pressure 131/82 04/11/25 10:11 Pulse Oximetry 96 04/11/25 10:11 Oxygen Delivery Room Air 04/11/25 10:11 Temperature 97.7 F 04/11/25 10:44 Pulse Rate 89 04/11/25 10:44 Respiratory Rate 18 04/11/25 10:44 Blood Pressure 145/83 H 04/11/25 10:44 Pulse Oximetry 97 04/11/25 10:44 Oxygen Delivery Room Air 04/11/25 10:11 Reviewed Transfer Transfered to: [facility] Transportation: BLS Transfer rationale: In-patient psychiatric services, higher level care, hallucinations Accepting physician: Arielle Transfer comments: EMS contacted MDM - Psych MDM Narrative Medical decision making narrative: Patient would like voluntary admission to inpatient psychiatric facility for her hallucinations. Lab work and urine obtained. Lab work unremarkable. Urinalysis shows evidence urinary tract infection, will treat her with Keflex. Urine culture pending. Urine jets screen shows marijuana and methamphetamines. Patient is medically clear for psychiatric evaluation. Patient has been calm and cooperative. Patient accepted to [facility] for psychiatric services. Awaiting ambulance for transfer. Prescription of Keflex printed to sent to facility. Differential Diagnosis Differential diagnosis: Likely acute psychosis, chronic schizophrenia, suicidal ideation, bipolar disorder, depression and drug-induced psychotic disorder Lab Data Attestation: I reviewed the patient's lab results. 04/11/25 11:09 04/11/25 11:09 Labs: Lab Results 04/11/25 04/11/25 04/11/25 Range/Units 11:09 11:23 14:11 WBC 6.5 (4.5-10.0) K/mm3 RBC 4.02 L (4.2-5.4) M/mm3 Hgb 12.1 (12.0-15.0) g/dL Hct 37.4 (37.0-47.0) % MCV 93.0 (80-100) fl MCH 30.1 (26-34) pg MCHC 32.4 (32-36) g/dl RDW 12.6 (11.5-14.5) % Plt Count 333 (150-375) k/mm3 MPV 10.0 (7.4-10.4) fl Immature Gran % (Auto) 0.3 (0-0.5) % Neut % (Auto) 71.7 (45.5-73.1) % Lymph % (Auto) 18.8 (18.3-44.2) % [place] % (Auto) 7.1 (2.6-8.5) % Eos % (Auto) 1.5 (0-4.4) % Baso % (Auto) 0.6 (0.2-1.2) % Lymph # (Auto) 1.22 (0.9-3.2) K/mm3 [place] # (Auto) 0.5 (0.1-0.6) K/mm3 Eos # (Auto) 0.1 (0-0.3) K/mm3 Baso # (Auto) 0.0 (0.0-0.1) K/mm3 Abs Immat Gran (auto) 0.02 (0.00-0.031) K/mm3 Absolute Neuts (auto) 4.7 (1.3-6.7) K/mm3 Absolute Nucleated RBC 0.000 (0.0-0.012) K/mm3 Nucleated RBC % 0.0 (0.0-0.2) % Sodium 137 (137-145) mmol/L Potassium 4.0 (3.4-5.0) mmol/L Chloride 105 (98-107) mmol/L Carbon Dioxide 26 (22-30) mmol/L Anion Gap 6 (4-12) mmol/L BUN 11 (7-17) mg/dL Creatinine 0.74 (0.7-1.0) mg/dL Estim Creat Clear Calc 143 ml/min Estimated GFR > 60 (59 - ) Glucose 117 H (65-110) mg/dL Calcium 9.4 (8.4-10.2) mg/dL Total Bilirubin 0.3 (0.2-1.3) mg/dL AST 23 (14-36) U/L ALT 22 (6-35) U/L Alkaline Phosphatase 74 (38-126) U/L Total Protein 7.2 (6.3-8.2) g/dL Albumin 4.0 (3.5-5.1) g/dL TSH (Reflex) 0.644 (0.465-4.68) uIU/mL Urine Color Yellow (Yellow) Urine Appearance Turbid H (Clear) Urine pH 6.5 (5.0-9.0) Ur Specific [place] 1.024 (1.001-1.035) Urine Protein Negative (Negative) mg/dL Urine Glucose (UA) Negative (Negative) mg/dL Urine Ketones Negative (Negative) mg/dL Ur Blood (Man) Negative (Negative) Urine Nitrate Positive H (Negative) Urine Bilirubin Negative (Negative) Urine Urobilinogen 0.2 (<2.0) mg/dL Add Ur Microanalysis Reviewed Leukocyte Esterase Rfl 1+ H (Negative) CLAIRE/UL Urine RBC 21-50 H (0-2) /hpf Urine WBC 21-50 H (0-3) /hpf Ur Squamous Epith Cells Occasional (Few) /hpf Urine Bacteria 4+ /hpf Urine Casts >20 POC Urine HCG, Qual (Negative) Urine Opiates Screen Negative (Negative) Urine Methadone Screen Negative (Negative) Ur Barbiturates Screen Negative (Negative) Ur Phencyclidine Scrn Negative (Negative) Ur Amphetamine Screen Positive A (Negative) U Benzodiazepines Scrn Negative (Negative) Urine Cocaine Screen Negative (Negative) U Cannabinoids Screen Positive A (Negative) Ethyl Alcohol < 10 (<10) mg/dL Influenza A (RT-PCR) Negative (Negative) Influenza B (RT-PCR) Negative (Negative) RSV (RT-PCR) Negative (Negative) SARS-CoV-2 RNA (RT-PCR) Negative (Negative) 04/11/25 Range/Units 14:20 WBC (4.5-10.0) K/mm3 RBC (4.2-5.4) M/mm3 Hgb (12.0-15.0) g/dL Hct (37.0-47.0) % MCV (80-100) fl MCH (26-34) pg MCHC (32-36) g/dl RDW (11.5-14.5) % Plt Count (150-375) k/mm3 MPV (7.4-10.4) fl Immature Gran % (Auto) (0-0.5) % Neut % (Auto) (45.5-73.1) % Lymph % (Auto) (18.3-44.2) % [place] % (Auto) (2.6-8.5) % Eos % (Auto) (0-4.4) % Baso % (Auto) (0.2-1.2) % Lymph # (Auto) (0.9-3.2) K/mm3 [place] # (Auto) (0.1-0.6) K/mm3 Eos # (Auto) (0-0.3) K/mm3 Baso # (Auto) (0.0-0.1) K/mm3 Abs Immat Gran (auto) (0.00-0.031) K/mm3 Absolute Neuts (auto) (1.3-6.7) K/mm3 Absolute Nucleated RBC (0.0-0.012) K/mm3 Nucleated RBC % (0.0-0.2) % Sodium (137-145) mmol/L Potassium (3.4-5.0) mmol/L Chloride (98-107) mmol/L Carbon Dioxide (22-30) mmol/L Anion Gap (4-12) mmol/L BUN (7-17) mg/dL Creatinine (0.7-1.0) mg/dL Estim Creat Clear Calc ml/min Estimated GFR (59 - ) Glucose (65-110) mg/dL Calcium (8.4-10.2) mg/dL Total Bilirubin (0.2-1.3) mg/dL AST (14-36) U/L ALT (6-35) U/L Alkaline Phosphatase (38-126) U/L Total Protein (6.3-8.2) g/dL Albumin (3.5-5.1) g/dL TSH (Reflex) (0.465-4.68) uIU/mL Urine Color (Yellow) Urine Appearance (Clear) Urine pH (5.0-9.0) Ur Specific [place] (1.001-1.035) Urine Protein (Negative) mg/dL Urine Glucose (UA) (Negative) mg/dL Urine Ketones (Negative) mg/dL Ur Blood (Man) (Negative) Urine Nitrate (Negative) Urine Bilirubin (Negative) Urine Urobilinogen (<2.0) mg/dL Add Ur Microanalysis Leukocyte Esterase Rfl (Negative) CLAIRE/UL Urine RBC (0-2) /hpf Urine WBC (0-3) /hpf Ur Squamous Epith Cells (Few) /hpf Urine Bacteria /hpf Urine Casts POC Urine HCG, Qual Negative (Negative) Urine Opiates Screen (Negative) Urine Methadone Screen (Negative) Ur Barbiturates Screen (Negative) Ur Phencyclidine Scrn (Negative) Ur Amphetamine Screen (Negative) U Benzodiazepines Scrn (Negative) Urine Cocaine Screen (Negative) U Cannabinoids Screen (Negative) Ethyl Alcohol (<10) mg/dL Influenza A (RT-PCR) (Negative) Influenza B (RT-PCR) (Negative) RSV (RT-PCR) (Negative) SARS-CoV-2 RNA (RT-PCR) (Negative) Critical Care Time Critical Care Time Critical Care Time: No Discharge Plan Discharge Clinical Impression: Auditory hallucinations, Urinary tract infection Patient Disposition: Psychiatric Hosp Condition: Stable Patient Language: Afghan Prescriptions: New cephalexin 500 mg capsule 500 mg PO Q12H 7 Days Qty: 14 0RF No Action furosemide 20 mg tablet 20 mg PO DAILY Qty: 4 0RF aripiprazole 10 mg tablet 10 mg PO DAILY famotidine [Pepcid] 20 mg tablet 20 mg PO BID Qty: 60 0RF Follow-up/Referrals: UNKNOWN,DOCTOR [Primary Care Provider] - Time of Disposition: 18:44
--- OUTSIDE RECORDS SUMMARY | 2025-04-11 12:01 | XMS_ITS | Clinical Summary ---
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
[2025-04-11 12:10] LABS: Thyroid Stimulating Hormone Reflex 0.644 uIU/mL (0.465-4.68)
[2025-04-11 12:14] LABS: Influenza A QL RT-PCR Negative (Negative); Influenza B QL RT-PCR Negative (Negative); RSV RNA, RT-PCR Negative (Negative); SARS-CoV-2 RNA PCR Negative (Negative)
[2025-04-11 14:23] LABS: BEDSIDEPREGUCG Negative (Negative)
[2025-04-11 14:57] LABS: Add Urine Microscopic? YES; Appearance Urine Turbid (Clear); Glucose Urine UA Negative (Negative); Leukocyte Esterase Ur 1+ LEU/UL (Negative); Need Manual Microscopic Reviewed; Nitrate Urine Positive (Negative); Non Pathogenic Casts >20; Specific Grav Ur 1.024 (1.001-1.035)
[2025-04-11 15:39] LABS: Cannabinoid Screen Urine Positive (Negative)
[2025-04-11] MEDS: CEPHALEXIN 500 MG CAPSULE PO (16:19)
[2025-04-11 21:59] VITALS: BP 117/68; PULSE 65; RESP 18; O2SAT 97
== END 2025-04-11 22:00 ==
DX: R44.0 Auditory hallucinations (principal); N39.0 Urinary tract infection, site not specified; Z20.822 Contact with and (suspected) exposure to COVID-19; F31.9 Bipolar disorder, unspecified; J44.9 Chronic obstructive pulmonary disease, unspecified; F17.210 Nicotine dependence, cigarettes, uncomplicated
CPT/HCPCS: 36415; 80053; 80307; 81001; 81025; 82077; 84443; 85025; 87086; 87637; 99285; A9270

== ENCOUNTER 2025-07-21 18:10 | Emergency (ER) | payer OTHER, SELFPAY ==
[2025-07-21 18:16] VITALS: BP 123/73; PULSE 112; RESP 16; TEMP 36.3; O2SAT 99
== END 2025-07-21 20:15 | disposition left against medical advice (07) ==
DX: Z30.432 Encounter for removal of intrauterine contraceptive device (principal)
CPT/HCPCS: 99199